=== PATIENT | female | born 1945 | race Caucasian/White ===

== ENCOUNTER → 2018-08-21 09:06 | Outpatient (CLI) | payer MEDICARE, OTHER, SELFPAY ==
[2018-08-21 12:42] LABS: Absolute Lymphocyte Count 1.45 X10^3/ul (0.83-4.51); Absolute Neutrophil Count 2.4 X10^3/uL (2.0-7.7); Basophil# 0.04 X10^3/uL; Basophil% 0.9 % (0-1); Eosinophil# 0.05 X10^3/uL; Eosinophils% 1.2 % (0-5); Hemoglobin 14.1 g/dl (12.0-15.0); Lymphocyte # 1.45 X10^3/ul (4.0); Lymphocyte % 33.4 % (19-41); Mean Corp Hgb Conc 32.8 g/gl (32-36); Mean Corpuscular Hgb 33.3 pg (27.0-32.0); Mean Corpuscular Volume 101.4 fL (81-99); Mean Platelet Vol. 12.2 fl (6.2-12.0); Monocyte% 9.2 % (0-10); Neutrophil % 55.3 % (47-70); Platelet Count 213 K/mm3 (150-450); RBC Distribution Width CV 12.3 % (11.6-14.6); RBC Distribution Width SD 45.5 fl (35.1-43.9); Red Blood Count 4.24 M/mm3 (4.2-5.4); White Blood Count 4.3 K/mm3 (4.4-11.0)
[2018-08-21 12:43] LABS: POSITIVE COUNT NO; POSITIVE DIFFERENTIAL NO; POSITIVE MORPHOLOGY NO
[2018-08-21 13:08] LABS: Vitamin B12 1126 pg/mL (211-911); Vitamin D,25 Hydroxy 55.1 ng/mL (29.95-100.01)
[2018-08-21 13:15] LABS: ALB/GLOB Ratio 1.1 RATIO (0.9-2.4); AST(SGOT) 19 U/L (15-37); Alanine Aminotransfer ALT/SGPT 21 U/L (13-56); Albumin, Serum 3.8 g/dL (3.2-5.0); Alkaline Phosphatase 81 U/L (45-117); Anion Gap 10 (5-15); BUN 27 mg/dL (7-18); BUN/Creat Ratio 31.7 RATIO (10-20); Calcium,Total 9.1 mg/dL (8.5-10.1); Chloride 107 mmol/L (98-107); Cholesterol 205 mg/dL (200); Creatinine, Serum 0.85 mg/dL (0.55-1.02); EST Glomerular Filtration Rate 69 mL/min (>60); Est Glom Filt Rate - Afr Amer 84 mL/min (>60); Free T3 3.4 pg/mL (2.18-3.98); Globulin 3.6 g/dL (2.2-4.2); Glucose 89 mg/dL (74-106); High Density Lipoprotein 61 mg/dL; Potassium 3.6 mmol/L (3.5-5.1); Protein, Total 7.4 g/dL (6.4-8.2); Sodium Level 144 mmol/L (136-145); T4 Free Direct 1.09 ng/dL (0.76-1.46); Thyroid Stim Hormone (TSH) 0.89 uIU/mL (0.358-3.74); Triglycerides 81 mg/dL; Very Low Density Lipoprotein 16 mg/dL (5-40)
== END ==
PROVIDERS: Family Provider Family Medicine; PCP Family Medicine; Visit Provider Family Medicine
DX: I10 Essential (primary) hypertension (principal); R53.83 Other fatigue; F32.9 Major depressive disorder, single episode, unspecified; E55.9 Vitamin D deficiency, unspecified; E53.8 Deficiency of other specified B group vitamins; E78.5 Hyperlipidemia, unspecified; Z51.81 Encounter for therapeutic drug level monitoring
CPT/HCPCS: 36415; 80053; 80061; 82306; 82607; 84439; 84443; 84481; 85025

== ENCOUNTER → 2019-02-20 14:00 | Outpatient (CLI) | payer MEDICARE, OTHER, SELFPAY | PROVIDERS: Family Provider Family Medicine; PCP Family Medicine; Visit Provider Family Medicine | DX: R30.0 Dysuria (principal); R82.998 Other abnormal findings in urine | CPT/HCPCS: 87086; 87088 ==

== ENCOUNTER → 2019-02-28 10:52 | Outpatient (CLI) | payer MEDICARE, OTHER, SELFPAY ==
--- NOTE | 2019-02-28 10:57 | MRI_ITS ---
STUDY: MRI RIGHT SHOULDER REASON FOR EXAM: Female, 73 years old. Pain. TECHNIQUE: Standardized fat and water weighted pulse sequences were obtained in all 3 orthogonal planes. COMPARISON: None. FINDINGS: There is a full-thickness tear of the anterior distal supraspinatus tendon, series 4 images 06/21 through . There is tendinosis of the infraspinatus with partial bursal surface distal tendon tear, series 4 images 03/14 and 04/13. Normal subscapularis tendon. Normal teres minor tendon. Normal supraspinatus muscle. Normal infraspinatus muscle. Normal subscapularis muscle. Normal teres minor muscle. There is a moderate volume joint effusion of the glenohumeral joint. There are cortical erosions at the insertion of the supraspinatus and infraspinatus tendons. Normal biceps labral complex. Normal intracapsular long biceps tendon. Normal labrum. Normal capsulo- ligamentous complex. Normal rotator interval. 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 There is a Type II morphology (curved) acromion, with a neutral orientation. There is moderate fluid distention of the subacromial bursa, consistent with moderate subacromial-subdeltoid bursitis. Normal visualized coracohumeral and coracoacromial ligaments. Normal quadrilateral space. Normal axillary space. Normal deltoid muscle. Normal trapezius muscle. MRI/Upper Ext Joint Only(Routine) IMPRESSION: Rotator cuff tear of the supraspinatus tendon. Partial tear of the infraspinatus tendon. Joint effusion. Subacromial subdeltoid bursitis. Electronically Signed: Robby Campbell MD at 11:59 EDT , Service support ,
== END ==
PROVIDERS: Family Provider Family Medicine; PCP Family Medicine; Referring Provider Family Medicine; Visit Provider Family Medicine
DX: M25.511 Pain in right shoulder (principal); M67.919 Unspecified disorder of synovium and tendon, unspecified shoulder
CPT/HCPCS: 73221

== ENCOUNTER → 2019-06-04 09:25 | Outpatient (CLI) | payer MEDICARE, OTHER, SELFPAY ==
[2019-06-04 12:22] LABS: Absolute Lymphocyte Count 1.49 X10^3/uL (0.83-4.51); Absolute Neutrophil Count 3.4 X10^3/uL (2.0-7.7); Basophil# 0.04 X10^3/uL; Basophil% 0.7 % (0-1); Eosinophil# 0.04 X10^3/uL; Eosinophils% 0.7 % (0-5); Hematocrit 41.6 % (37-47); Hemoglobin 13.4 g/dL (12.0-15.0); Lymphocyte # 1.49 X10^3/ul (4.0); Lymphocyte % 27.3 % (19-41); Mean Corp Hgb Conc 32.2 g/dL (32-36); Mean Corpuscular Hgb 32.4 pg (27.0-32.0); Mean Corpuscular Volume 100.5 fL (81-99); Mean Platelet Vol. 11.8 fl (6.2-12.0); Monocyte% 9.2 % (0-10); NRBC Flagged by Analyzer 0 % (0-5); Neutrophil # 3.36 X10^3/uL (2.7-7.7); Neutrophil % 61.7 % (47-70); Platelet Count 242 K/mm3 (150-450); RBC Distribution Width CV 12.4 % (11.6-14.6); RBC Distribution Width SD 46.1 fl (35.1-43.9); Red Blood Count 4.14 M/mm3 (4.2-5.4); White Blood Count 5.5 K/mm3 (4.4-11.0)
[2019-06-04 12:39] LABS: AST(SGOT) 13 U/L (15-37); Alanine Aminotransfer ALT/SGPT 18 U/L (13-56); Albumin, Serum 3.5 g/dL (3.2-5.0); Alkaline Phosphatase 80 U/L (45-117); Anion Gap 6 (5-15); BUN 21 mg/dL (7-18); BUN/Creat Ratio 21.7 RATIO (10-20); Chloride 110 mmol/L (98-107); Cholesterol 194 mg/dL (200); Creatinine, Serum 0.97 mg/dL (0.55-1.02); EST Glomerular Filtration Rate 60 mL/min (>60); Est Glom Filt Rate - Afr Amer 72 mL/min (>60); Globulin 3.5 g/dL (2.2-4.2); Glucose 76 mg/dL (74-106); High Density Lipoprotein 53 mg/dL; Potassium 3.4 mmol/L (3.5-5.1); Sodium Level 143 mmol/L (136-145); Thyroid Stim Hormone (TSH) 1.01 uIU/mL (0.358-3.74); Triglycerides 136 mg/dL; Very Low Density Lipoprotein 27 mg/dL (5-40)
== END ==
PROVIDERS: Family Provider Family Medicine; PCP Family Medicine; Referring Provider Family Medicine; Visit Provider Family Medicine
DX: I10 Essential (primary) hypertension (principal); R53.83 Other fatigue; E55.9 Vitamin D deficiency, unspecified; E03.9 Hypothyroidism, unspecified; E78.5 Hyperlipidemia, unspecified; Z51.81 Encounter for therapeutic drug level monitoring
CPT/HCPCS: 36415; 80053; 80061; 82306; 84443; 85025

== ENCOUNTER 2019-06-24 16:35 | Emergency (ER) | payer MEDICARE, OTHER, SELFPAY ==
[2019-06-24 16:36] VITALS: BP 143/79; PULSE 74; RESP 15; TEMP 36.6; O2SAT 95; BMI 26.2
[2019-06-24 16:42] VITALS: O2SAT 97
--- NOTE | 2019-06-24 16:59 | RAD_ITS ---
STUDY: X-RAY CHEST REASON FOR EXAM: Female, 74 years old. Cough TECHNIQUE: PA and lateral views of the chest. COMPARISON: None. FINDINGS: There is lobulation of the anterior right diaphragm. Mild central peribronchial thickening. The lungs are otherwise clear and deeply expanded. There is no demonstrated pleural abnormality. Normal size heart. Normal mediastinum and lisa. Normal visualized pulmonary arteries. Normal visualized aortic arch and descending thoracic aorta. There are mild degenerative changes of the visualized mid to lower thoracic spine. There is degenerative osteoarthritis of the bilateral acromioclavicular joints. There is no demonstrated abnormality of the visualized soft tissue structures of the upper abdomen. RAD/Chest PA and Lateral IMPRESSION: Mild central peribronchial thickening and a degree of hyperexpansion suggests bronchitis, either acute or chronic. No consolidating infiltrate or CHF. Electronically Signed: Michael Malik MD at 17:13 EST , Service support ,
--- NOTE | 2019-06-24 17:30 | ED.VIS.URI ---
History of Present Illness Chief Complaint: Cough Narrative: Patient presenting for evaluation secondary to a cough. Patient reports that over the course of about the last week she has been dealing with a cough that is minimally productive of clear sputum. Patient denies any malaise body aches or fevers. Mild rhinorrhea no sore throat. No nausea vomiting or diarrhea. Patient apparently has had some mild wheezing associated with this that has been refractory to fxza-ozh-[id number] medications. She has no underlying history of smoking COPD or asthma. No sick contacts. Review of systems otherwise negative. Past Medical History - Allergies and Home Meds Allergies/Adverse Reactions: Allergies No Known Allergies Allergy (Verified 06/24/19 16:36) Primary Care Physician: Danna Cuadra DO [Primary Care Provider] - Past Medical History: - - Depression Smoking Status: Never smoker Review of Systems All systems negative except as indicated General: Denies: Chills, Fever, Sweats Eyes: Denies: Visual changes - bilaterally, Diplopia ENT: Denies: Rhinorrhea, Sore throat Cardiovascular: Denies: Chest pain, Palpitations Respiratory: Reports: Cough Gastrointestinal: Denies: Abdominal pain, Nausea, Vomiting, Diarrhea, Melena, Hematochezia Genitourinary: Denies: Dysuria, Hematuria, Frequency Musculoskeletal: Denies: Back pain, Extremity Pain Skin: Denies: Rash, Wounds Neurological: Denies: Headache, Weakness, Numbness Physical Exam Vital Signs/Narrative: Vital Signs Temp Pulse Resp BP Pulse Ox 06/24/19 16:36 97.9 F 74 15 143/79 H 95 Inital Vital Signs reviewed: Yes General: Well nourished, Well developed Head: Normocephalic, Atraumatic Eyes: Perrl, EOMI Ears: Normal external canal, TM's clear Nose: Normal Inspection, No Rhinorrhea Mouth/Throat: Normal Inspection, No Posterior Erythema Neck: Supple, Nontender Cardiovascular: Regular rate, Regular rhythm, No murmurs Respiratory: No distress, Wheezing - Very mild scattered Abdomen: Soft, Nontender, Nondistended, Normal bowel sounds Back: Nontender, Normal Inspection Extremities: Nontender, No edema Skin: Normal color, No rash Neurological: Alert, Oriented x3, Cranial nerves II-XII grossly intact, Normal Strength, Normal Sensation Psychological: Normal affect Diagnostic/Tx/Re-eval - Medical Decision Making Patient presented secondary to a cough. She had mild wheezing. She is outside of the treatment window for influenza. PA and lateral chest x-ray by my personal review as well as radiology shows no evidence of infiltrate, but does show some evidence of possible bronchitis. Patient will be treated with an a butyryl inhaler. Patient will follow-up with primary care. Disposition: Home ED Disposition - Plan for ED Patient: Disposition: Home or Assisted Living Diagnosis: Bronchitis Instructions: BRONCHITIS with Wheezing (Adult) Prescriptions: Albuterol Inhaler [Ventolin Hfa] 1 - 2 puff INHALATION Q4H PRN PRN #1 inhaler PRN Reason: Wheezing Prescription Printed Referrals: Danna Cuadra DO [Primary Care Provider] - 1 Week
[2019-06-24 17:46] VITALS: BP 149/73; PULSE 75; RESP 18; O2SAT 95
== END 2019-06-24 17:47 | disposition home or self-care (01) ==
PROVIDERS: Emergency Provider Emergency Medicine; Family Provider Family Medicine; PCP Family Medicine
DX: J40 Bronchitis, not specified as acute or chronic (principal); F32.9 Major depressive disorder, single episode, unspecified; Z79.899 Other long term (current) drug therapy
CPT/HCPCS: 71046; 99282

== ENCOUNTER → 2019-07-21 11:44 | Outpatient (CLI) | payer MEDICARE, OTHER, SELFPAY ==
[2019-06-24 16:36] VITALS: BMI 26.2
--- NOTE | 2019-07-21 11:51 | BI_ITS ---
MAMMOGRAPHY - BILATERAL SCREENING REASON FOR EXAM: Female, 74 years old. Routine annual screening examination. PERTINENT HISTORY: Aunt with breast cancer. TECHNIQUE: Digital bilateral breast burt (3D mammographic acquisition) in the CC and MLO projections. 2-D mediolateral oblique (MLO) and craniocaudad (CC) views of both breasts were obtained. CAD: Full Field Digital Mammography with Computer Added Detection was performed. COMPARISON: Comparison is made with prior study dated September 25, 2016 and outside examination of August 29, 2012. FINDINGS: Breast Composition: The breasts are heterogeneously dense, which may obscure small masses. There are no dominant masses or suspicious calcifications. Stable benign-appearing small bilateral axillary lymph nodes. No other significant abnormalities are identified. There has been no significant change since the prior study. BI/SCREEN MAMM (CAD) W/BURT BILAT IMPRESSION: Stable bilateral screening mammogram. Yearly follow-up mammogram recommended. (A) ASSESSMENT CATEGORY: BIRADS Category 2: Benign. A letter regarding these results will be sent to the patient by the facility within 30 days. Approximately 10% of breast cancers are not detected by mammography. A normal mammogram should not delay biopsy of a clinically suspicious abnormality. [id number] Electronically Signed: Tom Napier, at 12:37 EST , Service support ,
== END ==
LOC: OPBI 11:45
PROVIDERS: PCP Family Medicine; Referring Provider Family Medicine; Visit Provider Family Medicine
DX: Z12.31 Encounter for screening mammogram for malignant neoplasm of breast (principal)
CPT/HCPCS: 77063; 77067

== ENCOUNTER → 2020-04-28 11:22 | Outpatient (CLI) | payer MEDICARE, OTHER, SELFPAY ==
[2020-04-28 15:33] LABS: Absolute Neutrophil Count 2.7 X10^3/uL (2.0-7.7); Basophil# 0.05 X10^3/uL; Basophil% 0.9 % (0-1); Eosinophil# 0.11 X10^3/uL; Hematocrit 42.8 % (37-47); Hemoglobin 13.5 g/dL (12.0-15.0); Lymphocyte % 39.4 % (19-41); Mean Corp Hgb Conc 31.5 g/dL (32-36); Mean Corpuscular Hgb 31.3 pg (27.0-32.0); Mean Corpuscular Volume 99.1 fL (81-99); Mean Platelet Vol. 11.7 fl (6.2-12.0); Monocyte# 0.48 X10^3/uL; Monocyte% 8.6 % (0-10); NRBC Flagged by Analyzer 0 % (0-5); Neutrophil # 2.74 X10^3/uL (2.7-7.7); Neutrophil % 48.9 % (47-70); Platelet Count 248 K/mm3 (150-450); RBC Distribution Width CV 12.9 % (11.6-14.6); RBC Distribution Width SD 47.2 fl (35.1-43.9); Red Blood Count 4.32 M/mm3 (4.2-5.4); White Blood Count 5.6 K/mm3 (4.4-11.0)
[2020-04-28 16:00] LABS: AST(SGOT) 21 U/L (15-37); Alanine Aminotransfer ALT/SGPT 21 U/L (13-56); Albumin, Serum 3.7 g/dL (3.2-5.0); Alkaline Phosphatase 83 U/L (45-117); Anion Gap 7 (5-15); BUN 22 mg/dL (7-18); BUN/Creat Ratio 19.3 RATIO (10-20); Chloride 105 mmol/L (98-107); Creatinine, Serum 1.14 mg/dL (0.55-1.02); EST Glomerular Filtration Rate 49 mL/min (>60); Est Glom Filt Rate - Afr Amer 59 mL/min (>60); Globulin 3.6 g/dL (2.2-4.2); Glucose 88 mg/dL (74-106); Potassium 4.1 mmol/L (3.5-5.1); Protein, Total 7.3 g/dL (6.4-8.2); Sodium Level 142 mmol/L (136-145)
[2020-04-30 07:03] LABS: SARS-COV-2 TOTAL ABS Nonreactive (Nonreactive)
== END ==
PROVIDERS: PCP Family Medicine; Visit Provider Family Medicine
DX: Z20.828 Contact with and (suspected) exposure to other viral communicable diseases (principal); I10 Essential (primary) hypertension; R53.83 Other fatigue
CPT/HCPCS: 36415; 80053; 85025; 86769

== ENCOUNTER → 2021-02-16 07:51 | Outpatient (CLI) | payer MEDICARE, OTHER, SELFPAY ==
--- NOTE | 2021-02-16 14:09 | PFT ---
INTRODUCTION: The patient is a 75-year-old female that presents for pulmonary function studies secondary to a diagnosis of shortness of breath and wheezing. Respiratory therapy reported good patient effort. Bronchodilators were used during testing. INTERPRETATION: Forced expiration spirometry demonstrates no evidence of a large airways obstructive ventilatory defect. There was no significant response to aerosolized bronchodilators. Spirograms are of good quality and plateau normally. Body plethysmography was performed and reveals lung volumes to be within normal limits. Diffusing capacity by single breath CO was also within normal limits. IMPRESSION: Grossly normal pulmonary function studies.
== END ==
PROVIDERS: PCP Family Medicine; Referring Provider Family Medicine; Visit Provider Family Medicine
DX: R06.2 Wheezing (principal)
CPT/HCPCS: 94060; 94726; 94729

== ENCOUNTER → 2021-03-17 07:32 | Outpatient (CLI) | payer MEDICARE, OTHER, SELFPAY ==
--- NOTE | 2021-03-17 07:36 | BI_ITS ---
MAMMOGRAPHY - BILATERAL SCREENING REASON FOR EXAM: Female, 75 years old. Routine annual screening examination. PERTINENT HISTORY: Aunt with breast cancer. One-month history of left palpable lump. TECHNIQUE: Digital bilateral breast burt (3D mammographic acquisition) in the CC and MLO projections. 2-D mediolateral oblique (MLO) and craniocaudad (CC) views of both breasts were obtained. CAD: Full Field Digital Mammography with Computer Added Detection was performed. COMPARISON: Comparison is made with prior study dated 01/19/2020 and 09/25/2016. FINDINGS: Breast Composition: The breasts are heterogeneously dense, which may obscure small masses. There are no dominant masses or suspicious calcifications. No other significant abnormalities are identified. There has been no significant change since the prior study. BI/SCRN MAMM (CAD)W/BURT BILAT IMPRESSION: Stable bilateral screening mammogram. With the patient''s history of a palpable lump in the left breast, correlation with ultrasound is recommended. ASSESSMENT CATEGORY: BIRADS Category 0: Incomplete. Need additional imaging evaluation. A letter regarding these results will be sent to the patient by the facility within 30 days. Approximately 10% of breast cancers are not detected by mammography. A normal mammogram should not delay biopsy of a clinically suspicious abnormality. [id number] Electronically Signed: Tom Napier MD at 8:08 EDT , Service support ,
== END ==
PROVIDERS: PCP Family Medicine; Referring Provider Family Medicine; Visit Provider Family Medicine
DX: Z12.31 Encounter for screening mammogram for malignant neoplasm of breast (principal)
CPT/HCPCS: 77063; 77067

== ENCOUNTER → 2021-03-17 08:08 | Outpatient (CLI) | payer MEDICARE, OTHER, SELFPAY ==
--- NOTE | 2021-03-17 08:25 | RAD_ITS ---
STUDY: X-RAY CHEST REASON FOR EXAM: Female, 75 years old. COUGH TECHNIQUE: PA and lateral views of the chest. COMPARISON: Comparison is made with prior study dated 06/24/2019. FINDINGS: There is hyperinflation of the lungs consistent with chronic obstructive lung disease (COPD). Stable mild increased markings at the lung bases suggestive of scarring There is no demonstrated pleural abnormality. Normal size heart. Normal mediastinum and lisa. Normal visualized pulmonary arteries. There is atherosclerotic tortuosity of the aortic arch and descending thoracic aorta. There is demineralization of the osseous structures. Increased kyphosis. Normal visualized ribs, clavicles, and shoulders. There is no demonstrated abnormality of the visualized soft tissue structures of the upper abdomen. RAD/Chest PA and Lateral IMPRESSION: Hyperinflation. Stable mild degree of linear scarring at the lung bases. Electronically Signed: Tom Napier MD at 9:19 EDT , Service support ,
== END ==
PROVIDERS: PCP Family Medicine; Referring Provider Family Medicine; Visit Provider Family Medicine
DX: R05 Cough (principal)
CPT/HCPCS: 71046

== ENCOUNTER → 2021-03-18 13:43 | Outpatient (CLI) | payer MEDICARE, OTHER, SELFPAY ==
--- NOTE | 2021-03-18 13:51 | US_ITS ---
STUDY: ULTRASOUND BREAST - LEFT REASON FOR EXAM: Female, 75 years old. Palpable lump left breast. TECHNIQUE: Axial and longitudinal images of the LEFT breast were performed with a high resolution ultrasound transducer. # OF IMAGES: 16 COMPARISON: Comparison is made with prior mammogram dated 03/17/2021. FINDINGS: LEFT Breast: There is a 5 mm x 5 mm x 3 mm mildly echogenic nodule with cystic spaces within it at the 11 o''clock position of the breast at 5 cm from the nipple. This corresponds to the palpable abnormality. A biopsy recommended. US/Breast Limited Unilateral IMPRESSION: The palpable abnormality corresponds to a 5 mm x 5 mm x 3 mm slightly echogenic nodule with cystic spaces within it. This is at the 11 o''clock position of the breast at 5 cm from nipple. A biopsy is recommended. ASSESSMENT CATEGORY: BIRADS Category 4: Suspicious - Biopsy Should Be Considered. A letter regarding these results will be sent to the patient by the facility within 30 days. Electronically Signed: Tom Napier MD at 14:37 EDT , Service support ,
== END ==
PROVIDERS: PCP Family Medicine; Referring Provider Family Medicine; Visit Provider Family Medicine
DX: N63.20 Unspecified lump in the left breast, unspecified quadrant (principal)
CPT/HCPCS: 76642

== ENCOUNTER → 2021-03-30 10:30 | Outpatient (CLI) | payer MEDICARE, OTHER, SELFPAY ==
--- NOTE | 2021-03-30 | IMM_PTH ---
PATIENT: AMINAH BOYD LOC: [facility] U#:[id number] AGE/SX: 80/F ROOM: RE03/30/[address]: Dr. Domenic Cha MD : 1945 BED: DIS: SPEC #: [id number] RECD: 03/31/21 13:14 STATUS: SYLVIE REFady #: [id number] MAEVE: 03/30/21 00:[address]: Domenic Cha DEPT: IMMUNOHISTOCHEMISTRY RECD BY: Christine Pastor ENTERED: 03/31/21 13:14 SP TYPE: IMMUNO OTHR DR: Dr. Danna Cuadra DO Tissues: Left breast, NOS Procedures: MACRO (initial) P53 (add) Vimentin (add) Pankeratin (add) PHYSICIAN & INSTITUTION [place] [id number] SPECIMEN INFORMATION: Tissue Source: Left breast, ultrasound-guided core biopsy Clinical Info: Left breast mass, 11 o?clock, 5 cm from nipple Specimen Number: [id number] CPT code: 77034, 33544 x3 METHODOLOGY: Deparaffinized sections of prefer/formalin-fixed tissue or PAP/DQ stained slides are incubated with monoclonal/polyclonal antibodies/oligonucleotide probes. Localization is made via biotin free immunoperoxidase method. Appropriate controls are performed and reacted as expected. Results on target cell population are indicated in the following table: RESULTS: ANTIBODY / CLONE RESULT Macro (HAM-56) positive Vimentin (V9) positive AE1-3 (AE1/AE3/PCK26) negative P53 (DO-7) negative These tests were developed and their performance characteristics determined by [facility]. They may not have been cleared or approved by the U.S. Food and Drug Administration. The FDA has determined that such clearance or approval is not necessary. The above immunohistochemical/dualISH markers are ordered and reviewed by the Pathologist. INTERPRETATION: Left breast, ultrasound-guided core biopsy: Benign histiocytes present. No evidence of malignancy. AM:ernesto 04/01/2021
--- NOTE | 2021-03-30 10:12 | HP.PCM_ITS ---
History and Physical Date of Admission: 03/30/21 Visit Reasons: Birads 4 left breast Chief Complaint: left breast lump Director Of Cardiology Required: No Is patient in pain?: No Allergies No Known Allergies Allergy (Verified 03/23/21 13:13) Medications albuterol sulfate 1 - 2 puff INHALATION Q4H PRN PRN #1 inhaler 06/24/19 [Rx Confirmed 03/23/21] citalopram 40 mg PO DAILY 06/24/19 [History Confirmed 03/23/21] diclofenac sodium 1 % topical gel 2 g TOPICAL BID g 03/23/21 [History Confirmed 03/23/21] ipratropium 0.5 mg-albuterol 3 mg (2.5 mg base)/3 mL nebulization soln 3 ml INHALATION Q8H PRN ml 03/23/21 [History Confirmed 03/23/21] lisinopril 10 mg-hydrochlorothiazide 12.5 mg tablet ea PO 03/23/21 [History Confirmed 03/23/21] Is last menstrual period known: No Post menopausal: Yes Patient : No PFSH Medical History (Updated 03/23/21 @ 13:12 by Marilou Jalloh) Fibrocystic breast disease HTN (hypertension) Osteoarthritis TMJ (temporomandibular joint disorder) Vitamin D deficiency Surgical History History of cataract extraction History of esophagogastroduodenoscopy (EGD) History of incisional hernia repair History of Phyllis fundoplication History of tubal ligation Family History (Updated 03/23/21 @ 13:13 by Marilou Jalloh) Father Heart disease Myocardial infarction Aunt Breast cancer Social History Smoking Status: Never smoker HPI HPI HPI: AMINAH BOYD, is a 76 F who presents to the office today for for alexia gical consultation regarding a palpable left breast mass. The patient is referred by Dr. Danna Cuadra and a written copy my surgical consult recommendations will return to her. The patient's imaging include on March 17, 2021 bilateral screening mammography. The breasts were noted to be dense. There were no suspicious findings. Because of the patient's history of a palpable left breast mass the interpretation was BI-RADS Category 0. Subsequently on March 18, 2021 left breast ultrasound was obtained. There was a 5 x 5 x 3 mm mildly echogenic nodule with cystic spaces left breast 11 o'clock position +5 cm. BI-RADS Category 4 biopsy recommended. 76-year-old female. A0. Menarche age 12. First child was born when she was 18. She did not breast-feed. She has had no previous breast biopsies. She has not been on estrogen replacement therapy. No direct family members with breast cancer. She has had no tenderness no drainage. She found this area on self-examination. She otherwise generally enjoys good health ROS General General: Yes weight change and fatigue; No appetite, colon cancer, breast cancer or weakness HEENT HEENT: No difficulty swallowing, eye injury, eye surgery, swollen glands or hoarseness Endo Endocrine: No thyroid disease, diabetes mellitus, thyroid cancer, Hair loss, heat intolerance or cold intolerance Breast Breast: Yes left breast lump; No right breast lump, nipple discharge, breast pain, abnormal mammogram, abnormal US or breast enlargement Cardio Cardiovascular: Yes atrial fibrillation; No murmur, pacemaker, heart disease, high blood pressure, heart attack, heart stent, palpitations, shortness of breat with exertion or chest pain Psych Psychiatric: No depression, anxiety or hearing voices Resp Respiratory: Yes shortness of breath, No sleep apnea, Yes cough, No COPD, No asthma, No emphysema and No wheezing Gastro Gastrointestinal: No abdominal pain, No nausea or vomiting, No diarrhea, No constipation, No blood in stool, No acid reflux, No hemorrhoids, No ulcers, No gallbladder problem and No black,tarry stools Bruno Hematologic: No blood thinners, No blood disorders, No bleeding, No anemia and No blood clots Neuro Neurologic: No weakness Exam Chest Other: Right breast: Diffusely fibrous. No focal mass. No nipple discharge. No axillary or clavicular adenopathy Left breast: Patient points to the left breast approximately 11:00 +5 cm. Today she is having difficulty in finding and palpating the area of her concern. On my clinical exam correlates with a very nondescript area of fibrous change. I do not see evidence of a skin pore. This does not feel like a classical subcutaneous lipoma. It is more of a diffuse rubbery nondescript nature. There is no nipple discharge. No axillary clavicular adenopathy Office Procedures Biopsy Provider Documentation Attempted ultrasound-guided needle core biopsy left breast 11 o'clock position +5 cm. I reviewed her preoperative mammogram imaging not demonstrating any focal finding. I reviewed her ultrasound imaging demonstrating what appears to be an extraordinarily vague subdermal lesion left breast 5 o'clock position. I then took the patient to the procedure room we prepped the area with Betadine and in the area which she we had premarked that the patient thought was the area of concern although she to had great difficulty and actually identifying the area today I performed ultrasound inspection. I could not mimic the vague findings on preoperative imaging. The procedure was concluded. Domenic Cha M.D., F.A.C.S. Assessment and Plan Assessment and Plan (1) Breast mass, left: Status: Acute Plan - Dr. Domenic Cha MD: I was hoping that on clinical exam I would be able to come to a more distinct determination. However this is rather nondescript. I therefore recommended the patient that we consider an attempt an ultrasound-guided needle core biopsy and explained technique, benefit, risk, alternatives. We will proceed as noted. We did attempt an ultrasound-guided needle core biopsy left breast 11 o'clock position +5 cm. I could not image the vague item seen on preoperative imaging. We will need to reschedule for the ultrasound suite. It is of most importance that the patient today was unable to focally locate the item herself. She was only able to localize it to a generalized area. I was only able to find an area of nondescript fibrous change. I was not able to clearly identify a focal reproducible clinical mass. We will schedule with the [facility] ultrasound suite and reattempt a biopsy if it can be visualized. I appreciate the opportunity of assisting with her surgical care Copy: Dr. Danna Cha M.D., F.A.C.S. I have re-examined the patient. There are no clinical changes since date of exam.
--- NOTE | 2021-03-30 10:33 | US_ITS ---
STUDY: ULTRASOUND BREAST - LEFT REASON FOR EXAM: Female, 76 years old. Ultrasound guided left breast biopsy. TECHNIQUE: Axial and longitudinal images of the LEFT breast were performed with a high resolution ultrasound transducer. # OF IMAGES: 28 COMPARISON: Comparison is made with prior ultrasound of the breasts dated 03/18/2021. FINDINGS: LEFT Breast: The surgeon who performed 3 core biopsies of the 7 mm x 5 mm x 3 mm hypoechoic solid and cystic nodule at the lung accomplished in the breast at 5 cm from nipple. US/US Breast Biopsy 1st Lesion IMPRESSION: Ultrasound guided breast biopsies as described. ASSESSMENT CATEGORY: BIRADS Category 4: Suspicious - Biopsy Should Be Considered. A letter regarding these results will be sent to the patient by the facility within 30 days. Electronically Signed: Tom Napier MD at 10:28 EDT , Service support ,
--- NOTE | 2021-03-30 11:00 | BRBX_PTH ---
PATIENT: AMINAH BOYD LOC: [facility] U#:[id number] AGE/SX: 80/F ROOM: RE03/30/[address]: Dr. Domenic Cha MD : 1945 BED: DIS: SPEC #: [id number] RECD: 03/30/21 11:43 STATUS: SYLVIE NARCISO #: [id number] MAEVE: 03/30/21 11:[address]: Domenic Cha DEPT: SURGICAL PATHOLOGY RECD BY: Pita Bazzi ENTERED: 03/30/21 12:53 SP TYPE: BREAST BX OTHR DR: Dr. Danna Cuadra DO Tissues: Left breast, NOS Procedures: Surgery Specimen Level IV HEADER OPERATION: Left breast biopsy, ultrasound-guided PRE-OP DIAGNOSIS: Left breast mass 11 o?clock, 5 cm from nipple TISSUE SUBMITTED: Left breast ISCHEMIC TIME: 1 minute FIXATION TIME: 8 hours MICROSCOPIC DIAGNOSIS Left breast, ultrasound-guided core biopsy: Fragments of fibrofatty tissue. Focal benign histiocytic proliferation. No evidence of malignancy. AM:ernesto 03/31/2021 COMMENT Immunohistochemistry ([id number]) supports the above diagnosis. Case has been reviewed in consultation with Dr. Cochran who concurs with the above diagnosis. IDC:PRASANNA MICROSCOPIC DESCRIPTION Slides are reviewed. GROSS DESCRIPTION Received in fixative is one container labeled with the patient's name and designated left breast. The specimen consists of multiple elongated fragments of [place]-yellow fibroadipose tissue that in aggregate measure 1 x 0.2 x 0.1 cm. The entire specimen is submitted in one cassette. / PRASANNA:ernesto 03/30/21 TC:5 [facility]: [id number]
--- NOTE | 2021-03-30 11:23 | PCM.OPRPT ---
Problems Associated Problem List Diagnoses (1) Breast mass, left: Report of Operation Date of Procedure: 03/30/21 Pre-Operative Diagnosis: Superficial left breast abnormal mammogram 11 o'clock position +5 cm Post-Operative Diagnosis: Same Surgery/Procedure Performed:: Ultrasound-guided needle core biopsy left breast 11:00 +5 cm Description of Surgical Findings:: Timeout informed consent was obtained. The patient was taken to the ultrasound suite. The very small 8 mm diameter superficial lesion left breast 11 o'clock position +5 cm was identified. This is very superficial and extraordinarily vague. Radiology felt it was BI-RADS 4 suspicious. The breast was prepped with chlorhexidine. Under ultrasound guidance 1% lidocaine was used as a local anesthetic. A small stab incision was created. 14-gauge Monopty needle was advanced to prefire depth. Pre and post fire films were obtained. 3 cores were obtained. Specimens were immediately transferred to formalin. A marking clip was placed. Pressure was held for hemostasis. Steri-Strip Telfa OpSite dressing applied. Ice pack applied. She was given activity and wound care instructions. Specimens cores. Drains none. Blood loss minimal. The patient will be provided phone contact follow-up regarding final pathology and further instructions Domenic Cha M.D., F.A.C.S. Surgeon: Domenic Cha Type of Anesthesia: Local
== END ==
PROVIDERS: PCP Family Medicine; Referring Provider Surgery; Visit Provider Surgery
DX: N63.22 Unspecified lump in the left breast, upper inner quadrant (principal)
CPT/HCPCS: 19083; 88305; 88341; 88342

== ENCOUNTER → 2021-06-15 13:49 | Outpatient (CLI) | payer MEDICARE, OTHER, SELFPAY ==
--- NOTE | 2021-06-15 13:52 | US_ITS ---
STUDY: ULTRASOUND BREAST - LEFT REASON FOR EXAM: Female, 76 years old. Status post breast biopsy. TECHNIQUE: Axial and longitudinal images of the LEFT breast were performed with a high resolution ultrasound transducer. # OF IMAGES: 14 COMPARISON: Comparison is made with prior sonogram of the left breast dated 03/30/2021. FINDINGS: LEFT Breast: The upper inner quadrant of the left breast was examined by ultrasound. A tissue clip marker is seen at the site of the biopsy. No palpable abnormality is seen at this time. US/Breast Limited Unilateral IMPRESSION: A tissue clip marker is seen in the upper inner quadrant of the left breast at the site of the prior biopsy. ASSESSMENT CATEGORY: BIRADS Category 2: Benign. A letter regarding these results will be sent to the patient by the facility within 30 days. Electronically Signed: Tom Napier MD at 15:42 EST , Service support ,
== END ==
PROVIDERS: PCP Family Medicine; Referring Provider Surgery; Visit Provider Surgery
DX: N63.20 Unspecified lump in the left breast, unspecified quadrant (principal)
CPT/HCPCS: 76642

== ENCOUNTER → 2022-05-04 | Outpatient (CLI) | payer MEDICARE, OTHER, SELFPAY ==
[2022-05-04 15:10] LABS: Absolute Lymphocyte Count 2.87 X10^3/uL (0.83-4.51); Absolute Neutrophil Count 3.8 X10^3/uL (2.0-7.7); Basophil# 0.06 X10^3/uL; Basophil% 0.8 % (0-1); Eosinophil# 0.08 X10^3/uL; Eosinophils% 1.1 % (0-5); Hematocrit 42.2 % (37-47); Hemoglobin 13.6 g/dL (12.0-15.0); Lymphocyte # 2.87 X10^3/ul (0.83-4.51); Lymphocyte % 38.9 % (19-41); Mean Corp Hgb Conc 32.2 g/dL (32-36); Mean Corpuscular Hgb 32.5 pg (27.0-32.0); Mean Corpuscular Volume 100.7 fL (81-99); Monocyte# 0.58 X10^3/uL; Monocyte% 7.9 % (0-10); NRBC Flagged by Analyzer 0 % (0-5); Neutrophil # 3.77 X10^3/uL (2.7-7.7); Neutrophil % 51.2 % (47-70); Platelet Count 232 K/mm3 (150-450); RBC Distribution Width CV 12.1 % (11.6-14.6); RBC Distribution Width SD 45.2 fl (35.1-43.9); Red Blood Count 4.19 M/mm3 (4.2-5.4); White Blood Count 7.4 K/mm3 (4.4-11.0)
[2022-05-04 15:22] LABS: AST(SGOT) 22 U/L (15-37); Alanine Aminotransfer ALT/SGPT 18 U/L (13-56); Albumin, Serum 3.5 g/dL (3.2-5.0); Alkaline Phosphatase 100 U/L (45-117); Anion Gap 7 (5-15); BUN 20 mg/dL (7-18); BUN/Creat Ratio 23.5 RATIO (10-20); Calcium,Total 8.8 mg/dL (8.5-10.1); Chloride 106 mmol/L (98-107); Cholesterol 194 mg/dL (200); Creatinine, Serum 0.85 mg/dL (0.55-1.02); EST Glomerular Filtration Rate 69 mL/min (>60); Est Glom Filt Rate - Afr Amer 83 mL/min (>60); Globulin 3.6 g/dL (2.2-4.2); Glucose 96 mg/dL (74-106); High Density Lipoprotein 52 mg/dL; Potassium 3.6 mmol/L (3.5-5.1); Protein, Total 7.1 g/dL (6.4-8.2); Sodium Level 143 mmol/L (136-145); Triglycerides 245 mg/dL; Very Low Density Lipoprotein 49 mg/dL (5-40)
== END | disposition home or self-care (01) ==
LOC: BFHLAB 13:41
PROVIDERS: PCP Family Medicine; Visit Provider Family Medicine
DX: Z51.81 Encounter for therapeutic drug level monitoring (principal); E78.5 Hyperlipidemia, unspecified
CPT/HCPCS: 36415; 80053; 80061; 85025

== ENCOUNTER → 2022-11-15 | Outpatient (CLI) | payer MEDICARE, OTHER, SELFPAY ==
[2022-11-15 11:43] LABS: Absolute Lymphocyte Count 2.58 X10^3/uL (0.83-4.51); Absolute Neutrophil Count 5.3 X10^3/uL (2.0-7.7); Basophil# 0.04 X10^3/uL; Basophil% 0.5 % (0-1); Eosinophil# 0.11 X10^3/uL; Eosinophils% 1.3 % (0-5); Hematocrit 43.7 % (37-47); Hemoglobin 14.2 g/dL (12.0-15.0); Lymphocyte # 2.58 X10^3/ul (0.83-4.51); Lymphocyte % 29.6 % (19-41); Mean Corp Hgb Conc 32.5 g/dL (32-36); Mean Corpuscular Hgb 32.8 pg (27.0-32.0); Mean Corpuscular Volume 100.9 fL (81-99); Monocyte# 0.67 X10^3/uL; Monocyte% 7.7 % (0-10); NRBC Flagged by Analyzer 0 % (0-5); Neutrophil # 5.29 X10^3/uL (2.7-7.7); Neutrophil % 60.4 % (47-70); Platelet Count 258 K/mm3 (150-450); RBC Distribution Width CV 12.4 % (11.6-14.6); RBC Distribution Width SD 46.8 fl (35.1-43.9); Red Blood Count 4.33 M/mm3 (4.2-5.4); White Blood Count 8.7 K/mm3 (4.4-11.0)
[2022-11-15 12:21] LABS: Anion Gap 5 (5-15); BUN 17 mg/dL (7-18); BUN/Creat Ratio 21.9 RATIO (10-20); Calcium,Total 9.2 mg/dL (8.5-10.1); Chloride 106 mmol/L (98-107); Creatinine, Serum 0.78 mg/dL (0.55-1.02); EST Glomerular Filtration Rate 76 mL/min (>60); Est Glom Filt Rate - Afr Amer 92 mL/min (>60); Glucose 96 mg/dL (74-106); Potassium 3.7 mmol/L (3.5-5.1); Sodium Level 139 mmol/L (136-145)
== END | disposition home or self-care (01) ==
LOC: LAB 11:22
PROVIDERS: PCP Family Medicine; Referring Provider Internal Medicine Cardiovascular Disease; Visit Provider Internal Medicine Cardiovascular Disease
DX: I51.89 Other ill-defined heart diseases (principal); I50.9 Heart failure, unspecified; I11.0 Hypertensive heart disease with heart failure
CPT/HCPCS: 36415; 80048; 85025

== ENCOUNTER 2022-11-17 10:55 | Day surgery (SDC) | payer MEDICARE, OTHER, SELFPAY ==
[2022-11-16 08:58] VITALS: BMI 27.1
--- NOTE | 2022-11-17 13:08 | CL.D_ITS ---
Patient Name: AMINAH BOYD Study Date: 11/17/2022 Performing: Yung Nix MD Ht: 58 inches 147.32 cm : 1945 Wt: 130.01 lbs 58.97 kg Age: 77 Gender: female BSA: 1.52 PROCEDURE(S) PERFORMED DC01-(10330)LHC/COR/LV CLINICAL PROFILE AND INDICATIONS Indications: Other Heart Failure: NYHA Class: 2, Newly Diagnosed: Yes, Heart Failure Type: Diastolic Stress/Imaging Stress/Image Study Performed: No CAD Presentations: Other: sob CONCLUSIONS Non obstructive coronary arteries Normal LV size, wall motion,and systolic function RECOMMENDATIONS Medical therapy DESCRIPTION OF PROCEDURE The patient arrived to the procedure lab. The risks and benefits of the procedure as well as a full description of our services here and current unavailability of surgical backup were fully explained to the patient and/or their significant other prior to the catheterization. The Timeout was completed, verifying the correct patient and procedure. The patient's procedural site was prepped and draped in the usual fashion. Local anesthetic was given subcutaneously to right radial region with Lidocaine 2%. Using a modified Seldinger technique, arterial access was obtained via the right radial artery, a 6Fr sheath was inserted. Left Coronary Artery selective angiography was performed in multiple views using a 5 Fr. 4.0 Hana catheter. Right Coronary Artery selective angiography was then performed in multiple views using a 5 Fr. 4.0 Hana catheter. Left Ventriculography was performed in BRUNNER projection using a 5 Fr. Pigtail catheter. LV to AO pullback pressures were then recorded.The arterial sheath was pulled and a TR Band was applied for hemostasis w/ 10ml air CORONARY ANGIOGRAPHY DOMINANCE: Right Dominant LEFT HEART ASSESSMENT Left Ventricular Ejection Fraction: by LV Gram 60 % Normal LV wall motion Normal Left Ventricular systolic function LEFT MAIN: Angiographically normal LEFT ANTERIOR DESCENDING ARTERY: Proximal 30% LAD and mild distal disease is present. DIAGONAL 1: Ostial - 60 % Stenosis CIRCUMFLEX ARTERY: No significant disease noted RIGHT CORONARY ARTERY: Mild luminal irregularities COMPLICATIONS No Complications PROCEDURE MEDICATIONS Versed 1 mg IV Fentanyl 50 mcg IV Oxygen: 2 L/min via nasal cannula Heparin given IA 11/17/2022 12:33:52 Verapamil 2.5mg, Ntg 100mcgs, 3000 units of Heparin given IA 11/17/2022 12:33:52 SUMMARY OF HEMODYNAMIC DATA Time AIR REST ECG 11:18:49 Art 127/51 (78) 12:26:00 AO 130/50 (86) SA 12:35:55 LV 118/5, 26 12:44:43 LV 131/6, 20 12:44:51 LV 128/2, 18 12:45:53 LV 125/5, 21 12:46:02 LVp 127/5, 22 12:46:05 AOp 133/53 (86) 12:46:12 AIR REST 12:59:06 Signed By Yung Nix MD On 11/17/2022 13:07:42 Yung Nix MD
== END 2022-11-17 14:30 | disposition home or self-care (01) ==
LOC: CLSP 10:57
PROVIDERS: PCP Family Medicine; Referring Provider Internal Medicine Cardiovascular Disease; Visit Provider Internal Medicine Cardiovascular Disease
DX: I50.30 Unspecified diastolic (congestive) heart failure (principal)
CPT/HCPCS: 93458; 99152; 99153; J7040; C1769; C1894

== ENCOUNTER → 2023-04-18 | Outpatient (CLI) | payer MEDICARE, OTHER, SELFPAY ==
[2023-04-18 13:05] LABS: Absolute Lymphocyte Count 1.86 X10^3/uL (0.83-4.51); Basophil# 0.07 X10^3/uL; Basophil% 0.7 % (0-1); Eosinophil# 0.15 X10^3/uL; Eosinophils% 1.5 % (0-5); Hematocrit 41.3 % (37-47); Hemoglobin 13.6 g/dL (12.0-15.0); Lymphocyte # 1.86 X10^3/ul (0.83-4.51); Mean Corp Hgb Conc 32.9 g/dL (32-36); Mean Corpuscular Hgb 32.8 pg (27.0-32.0); Mean Corpuscular Volume 99.5 fL (81-99); Mean Platelet Vol. 11.4 fl (6.2-12.0); Monocyte# 0.66 X10^3/uL; Monocyte% 6.7 % (0-10); NRBC Flagged by Analyzer 0 % (0-5); Neutrophil # 7.01 X10^3/uL (2.7-7.7); Neutrophil % 71.8 % (47-70); Platelet Count 249 K/mm3 (150-450); RBC Distribution Width CV 12.1 % (11.6-14.6); RBC Distribution Width SD 44.3 fl (35.1-43.9); Red Blood Count 4.15 M/mm3 (4.2-5.4); White Blood Count 9.8 K/mm3 (4.4-11.0)
[2023-04-18 13:19] LABS: Vitamin D,25 Hydroxy 51.7 ng/mL
[2023-04-18 13:39] LABS: ALB/GLOB Ratio 0.9 RATIO (0.9-2.4); AST(SGOT) 22 U/L (15-37); Alanine Aminotransfer ALT/SGPT 20 U/L (13-56); Albumin, Serum 3.5 g/dL (3.2-5.0); Alkaline Phosphatase 99 U/L (45-117); Anion Gap 5 (5-15); BUN 23 mg/dL (7-18); BUN/Creat Ratio 30.7 RATIO (10-20); Chloride 108 mmol/L (98-107); Cholesterol 197 mg/dL (200); Creatinine, Serum 0.75 mg/dL (0.55-1.02); EST Glomerular Filtration Rate 79 mL/min (>60); Est Glom Filt Rate - Afr Amer 96 mL/min (>60); Glucose 94 mg/dL (74-106); High Density Lipoprotein 63 mg/dL; Potassium 3.7 mmol/L (3.5-5.1); Protein, Total 7.5 g/dL (6.4-8.2); Sodium Level 140 mmol/L (136-145); Thyroid Stim Hormone (TSH) 0.88 uIU/mL (0.358-3.74); Triglycerides 87 mg/dL; Very Low Density Lipoprotein 17 mg/dL (5-40)
== END | disposition home or self-care (01) ==
LOC: BFHLAB 09:27
PROVIDERS: PCP Family Medicine; Referring Provider Family Medicine; Visit Provider Family Medicine
DX: Z51.81 Encounter for therapeutic drug level monitoring (principal); E55.9 Vitamin D deficiency, unspecified; E78.5 Hyperlipidemia, unspecified
CPT/HCPCS: 36415; 80053; 80061; 82306; 84443; 85025

== ENCOUNTER 2023-04-28 19:54 | Emergency (ER) | payer MEDICARE, OTHER, SELFPAY ==
[2023-04-28 19:55] VITALS: BP 193/70; PULSE 65; RESP 16; TEMP 36.6; O2SAT 98; BMI 27.1
--- NOTE | 2023-04-28 20:15 | EKG12_ITS ---
Test Reason : HTN Blood Pressure : / mmHG Vent. Rate : 063 BPM Atrial Rate : 063 BPM P-R Int : 142 ms QRS Dur : 074 ms QT Int : 414 ms P-R-T Axes : 049 009 010 degrees QTc Int : 423 ms Normal sinus rhythm Normal ECG Confirmed by BOBBY HILTON, LISS ([id number]), web editor MARY HOU ([id number]) on 05/07/2023 7:02:25 AM Referred By: CAROLEE Confirmed By:ARTURO ROSALES MD
--- NOTE | 2023-04-28 20:33 | EX.ED.DYSGE1 ---
HPI <BHAVIK Woo - Last Filed: 04/28/23 20:39> History of Present Illness Chief Complaint: Hypertension Narrative Narrative: Patient is an 78-year-old female with history of CHF, CAD, hypertension, anxiety who presents to the emergency department with elevated blood pressure. Per the daughter, the patient is on a low-sodium diet however over the last several days, she is been eating foods high in sodium. Patient denies any chest pain however states she does have history of neck pain that is going to her left shoulder. She denies any shortness of breath. Patient denies any shortness of breath on exertion, diaphoresis PFSH <BHAVIK Woo - Last Filed: 04/28/23 20:39> PFSH Medical History Anxiety and depression Atrial fibrillation Breast mass, left CHF (congestive heart failure) Diastolic dysfunction Essential hypertension Fibrocystic breast disease Osteoarthritis TMJ (temporomandibular joint disorder) Vitamin D deficiency Home Medications albuterol sulfate 90 mcg/actuation aerosol inhaler 1 - 2 puff inhalation Q4H PRN PRN Wheezing ##1 06/24/19 [Rx Last Taken Unknown] citalopram 40 mg tablet 40 mg PO DAILY 06/24/19 [History Last Taken 06/24/19] Adult BP monitor #1 ea 11/15/22 [Rx Last Taken Unknown] carvedilol 6.25 mg tablet 6.25 mg PO BID #120 tabs 11/17/22 [Rx Last Taken Unknown] diclofenac sodium 1 % topical gel 2 g topical BID PRN joint pain 12/12/22 [History Last Taken Unknown] fluticasone propionate 100 mcg/actuation blister powder for inhalation (Flovent Diskus) 1 inh inhalation Q12H 04/28/23 [History Last Taken Unknown] furosemide 40 mg tablet 40 mg PO .twice a week 04/28/23 [History Last Taken Unknown] losartan 25 mg tablet 50 mg PO DAILY 04/28/23 [History Last Taken Unknown] Allergy/AdvReac Type Severity Reaction Status Date / Time lisinopril Allergy cough Verified 04/28/23 19:54 Family History Father Heart disease Myocardial infarction Aunt Breast cancer Mother Dementia Surgical History History of cataract extraction History of colonoscopy History of esophagogastroduodenoscopy (EGD) History of incisional hernia repair History of Phyllis fundoplication History of tubal ligation Social History Smoking Status: Never smoker alcohol intake: never substance use type: does not use caffeine: Yes Type: carbonated beverages Number of servings: 1 ROS <BHAVIK Woo - Last Filed: 04/28/23 20:39> ROS ED ROS Narrative Constitutional: Negative for fever, chills, weight loss, weakness Eyes: Negative for vision loss, vision change, double vision ENT: Negative for any sore throat, ear pain, congestion Cardiovascular: Negative for any chest pain, tightness, palpitations. Positive for elevated blood pressure Respiratory: Negative for any cough, sputum production, hemoptysis, dyspnea, dyspnea on exertion, orthopnea Gastrointestinal: Negative for any abdominal pain, nausea, vomiting, diarrhea, constipation, blood in stool, blood in vomit : Negative for any urinary frequency, dysuria, retention, blood in urine Muscle skeletal: Negative for any muscle joint pain, stiffness, myalgias, arthralgias, back pain. Positive for 5 months of Neck stiffness, left shoulder pain intermittently. Neurological: Negative for any headache, syncope, numbness or tingling, dizziness Skin: Negative for any rashes, lumps, itching, abrasions, lacerations Psychiatric: Negative for any depression, anxiety, stress, suicidal ideation, homicidal ideation Hematologic: Negative for any easy bruising, excessive bruising, easy bleeding Allergies: Negative for any eczema, hives, rash EXAM <BHAVIK Woo - Last Filed: 04/28/23 20:39> Physical Exam Narrative Exam Narrative: Vital signs reviewed. HEET: Head normocephalic atraumatic, TMs clear bilaterally. Posterior pharynx is clear, moist mucous membranes. Nares clear bilaterally. Neck: Supple with no lymphadenopathy or tenderness. No signs of meningismus, negative jolt sign. Cardiac: Regular rate and rhythm no murmurs gallops or rubs, equal peripheral pulses bilaterally. Respiratory: Lung sounds are clear, patient does have diminished lung sounds to the left lower lobe no crackles noted.. No chest tenderness. Abdomen: Soft, nontender, nondistended. No abdominal bruit or pulsatile masses. No hepatosplenomegaly Extremities: No peripheral edema, no signs of gross trauma or deformity. Active full range of motion of all extremities. Neuro: Cranial nerves II through XII intact, no focal neurological deficits. Skin: Clean dry and intact with no rash, purpura, petechiae, vesicles or pustules. Backs/flank: No CVA tenderness, no midline spinal tenderness, no deformity. Psych: Normal mood and affect. No SI, HI or acute psychosis. Const Vital Signs: 04/28/23 19:55 04/28/23 20:26 04/28/23 21:42 Temperature 97.8 F Temperature Source Temporal Pulse Rate 65 Respiratory Rate 16 Respiratory Pattern Normal Blood Pressure 193/70 H Blood Pressure Mean 111 Pulse Ox 98 Oxygen Delivery Method Room Air Positive well nourished and well developed General Appearance ED: well developed <Elbert Medel MD - Last Filed: 04/28/23 22:13> Physical Exam Const Vital Signs: 04/28/23 19:55 04/28/23 20:26 04/28/23 21:42 Temperature 97.8 F Temperature Source Temporal Pulse Rate 65 Respiratory Rate 16 Respiratory Pattern Normal Blood Pressure 193/70 H Blood Pressure Mean 111 Pulse Ox 98 Oxygen Delivery Method Room Air MDM <BHAVIK Woo - Last Filed: 04/28/23 20:39> MDM Lab Data Labs: Laboratory Results - last 24 hr 04/28/23 20:40 WBC 6.6 RBC 4.09 L Hgb 13.4 Hct 40.4 MCV 98.8 MCH 32.8 H MCHC 33.2 RDW Std Deviation 45.6 H RDW Coeff of Bakari 12.6 Plt Count 199 MPV 11.1 Immature Gran % (Auto) 0.200 Neut % (Auto) 49.6 Lymph % (Auto) 38.1 [place] % (Auto) 9.5 Eos % (Auto) 1.7 Baso % (Auto) 0.9 Absolute Neuts (auto) 3.3 Absolute Lymphs (auto) 2.50 Nucleated RBC % 0 Sodium 142 Potassium 4.0 Chloride 107 Carbon Dioxide 31.0 Anion Gap 4 L BUN 19 H Creatinine 1.00 Estim Creat Clear Calc 43.21 Est GFR (MDRD) Af Amer 69 Est GFR (MDRD) Non-Af 57 L BUN/Creatinine Ratio 19.0 Glucose 100 Calcium 9.0 Troponin I High Sens 5 B-Natriuretic Peptide 39.0 Radiography Diagnostic Testing: Clinical Impression(s) from Imaging Studies Chest X-Ray 04/28/23 20:55 IMPRESSION: Normal x-ray examination of the chest. Electronically Signed: Jerry Bass MD at 21:37 EDT , EKG Normal sinus rhythm: Attestation: I personally reviewed and interpreted this EKG as follows: Comments: EKG shows a normal sinus rhythm, rate of 63 bpm SD interval 142 ms, QRS duration 74 ms, no acute ST elevation, no acute infarct noted. Treatment and Re-Evaluation :: Patient appears to be in no distress vital signs are stable. Patient presents to the emergency department complaints of elevated blood pressure. Patient will receive a full cardiac work-up. Differential diagnosis includes ACS, NE, NSTEMI, uncontrolled high blood pressure, CHF exacerbation. Patient's repeat blood pressure was 173/68. Patient will receive basic laboratory values concerning for any elevated white blood count, electrolyte imbalance, proBNP. Troponin will be completed concerning for any cardiac involvement. Patient will receive a two-view chest x-ray concern for any pulmonary pathology including pleural effusion, fluid overload. <Elbert Medel MD - Last Filed: 04/28/23 22:13> [facility] Narrative Medical decision making narrative: Dr. Medel: EKG was obtained and interpreted by myself independently as normal sinus rhythm at 63 bpm without ectopy or acute ST changes. No STEMI. I reviewed the patient's laboratory work and she has a normal white count of 6.6, hemoglobin normal 13.3, hematocrit 40.4, platelet count normal at 199. Review of her BMP shows normal sodium of 140, potassium normal at 4.0, BUN slightly elevated at 19 which I think is nonspecific, creatinine normal at 1.0. Her high-sensitivity troponin is 5. This is greater than a 6-hour troponin so I do not feel that serial enzymes are indicated. Additionally, BNP is normal at 39. Chest x-ray in 2 views and interpreted by myself independently shows no evidence of congestive heart failure, no pneumonia or pneumothorax. I reviewed the radiology report which confirms my independent interpretation. At this point in time, her blood pressure has come down to the 160s systolic. She is actually on a lower dose of losartan. Her daughter states that Dr. Nix who is in control of her blood pressure medications, actually increased her losartan from 25 mg to 50. Additionally, they reduced her Lasix to twice a week. I do feel that she should increase her losartan dose. She will be given 25 mg here in the emergency department, and she was told to keep a log of her blood pressures. Should her blood pressure be elevated, she can take an extra dose of her 50 mg, and follow-up with Dr. Nix. She is to return with chest pain, shortness of breath, headaches, new or worsening symptoms. 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 Return instructions were reviewed. Patient and her daughter are agreeable to the plan. Disposition is discharged home in stable condition. Dr. Medel: I have personally performed a face to face assessment of the patient and have reviewed the REGAN Note. I performed a substantive portion of the visit including all aspects of the following. My carbajal findings include: History is elevated blood pressure, history of CHF and hypertension Exam is afebrile. Vital signs noted. Regular rate and rhythm. Lungs clear to auscultation bilaterally. Abdomen soft and nontender. Medical Decision Making: Check labs. Check chest x-ray. Follow-up with cardiology. Discharge. Other additions or changes: [None] History & Record Review Discussion w/independent historian: Patient and Family Additional record(s) reviewed:: Prior ED visit Lab Data Attestation: I reviewed the patient's lab results. Labs: Laboratory Results - last 24 hr 04/28/23 20:40 WBC 6.6 RBC 4.09 L Hgb 13.4 Hct 40.4 MCV 98.8 MCH 32.8 H MCHC 33.2 RDW Std Deviation 45.6 H RDW Coeff of Bakari 12.6 Plt Count 199 MPV 11.1 Immature Gran % (Auto) 0.200 Neut % (Auto) 49.6 Lymph % (Auto) 38.1 [place] % (Auto) 9.5 Eos % (Auto) 1.7 Baso % (Auto) 0.9 Absolute Neuts (auto) 3.3 Absolute Lymphs (auto) 2.50 Nucleated RBC % 0 Sodium 142 Potassium 4.0 Chloride 107 Carbon Dioxide 31.0 Anion Gap 4 L BUN 19 H Creatinine 1.00 Estim Creat Clear Calc 43.21 Est GFR (MDRD) Af Amer 69 Est GFR (MDRD) Non-Af 57 L BUN/Creatinine Ratio 19.0 Glucose 100 Calcium 9.0 Troponin I High Sens 5 B-Natriuretic Peptide 39.0 Radiography Diagnostic Testing: Clinical Impression(s) from Imaging Studies Chest X-Ray 04/28/23 20:55 IMPRESSION: Normal x-ray examination of the chest. Electronically Signed: Jerry Bass MD at 21:37 EDT Reading Location ID and State: [facility] / [place] Tel , Service support , Discharge Plan Triage Chief Complaint: Hypertension ED Midlevel Provider: Khoa Green ED Provider: Elbert Medel Dx/Rx/DC Orders Clinical Impression: CHF (congestive heart failure), Essential hypertension Instructions: Blood Pressure Check Steps, ED High Blood Pressure Hypertension Prescriptions: No Action diclofenac sodium 1 % gel 2 g topical BID PRN (Reason: joint pain) Rx Instructions: apply to single elbow, wrist or hand; for hand includes palm/fingers/back of hand (DME) Adult BP monitor See Rx Instructions .Route .MEDSUPPLY Qty: 1 0RF Rx Instructions: Adult BP monitor with arm cuff. citalopram 40 MG tablet 40 mg PO DAILY Patient Comments: Take one tablet daily. albuterol sulfate 1 INHALER inhaler 1 - 2 puff inhalation Q4H PRN PRN (Reason: Wheezing) Qty: 1 0RF Hold Instructions: not taking Flovent Diskus 100 mcg/actuation blister with device 1 inh inhalation Q12H furosemide 40 mg tablet 40 mg PO .twice a week Patient Comments: , losartan 25 mg tablet 50 mg PO DAILY carvedilol 6.25 mg tablet 6.25 mg PO BID Qty: 120 3RF Rx Instructions: must administer with a meal/food Primary Care Provider: Danna Cuadra Referrals: Yung Nix MD [Med Staff - Active Staff] - 3-5 Days Danna Cuadra DO [Primary Care Provider] - 3-5 Days Activity Restrictions/Additional Instructions: Keep a log of your blood pressures, take it once in the morning and once at night. You may increase your losartan to 100 mg daily. Return with chest pain, shortness of breath, headaches, new or worsening symptoms. Disposition Disposition: Home, Self Care Discharge Date/Time: 04/28/23 21:54
--- NOTE | 2023-04-28 20:55 | RAD_ITS ---
STUDY: X-RAY CHEST REASON FOR EXAM: Female, 78 years old. chest pain TECHNIQUE: Single AP portable view of the chest. COMPARISON: 03/17/2021 FINDINGS: The lungs are clear and expanded. There is no demonstrated pleural abnormality. Normal size heart. Normal mediastinum and lisa. Normal visualized pulmonary arteries. Normal visualized aortic arch and descending thoracic aorta. Normal visualized thoracic spine. Normal visualized ribs, clavicles, and shoulders. There is no demonstrated abnormality of the visualized soft tissue structures of the upper abdomen. RAD/Chest PA and Lateral IMPRESSION: Normal x-ray examination of the chest. Electronically Signed: Jerry Bass MD at 21:37 EDT ,
[2023-04-28 20:56] LABS: Absolute Neutrophil Count 3.3 X10^3/uL (2.0-7.7); Basophil# 0.06 X10^3/uL; Basophil% 0.9 % (0-1); Eosinophil# 0.11 X10^3/uL; Eosinophils% 1.7 % (0-5); Hematocrit 40.4 % (37-47); Hemoglobin 13.4 g/dL (12.0-15.0); Lymphocyte % 38.1 % (19-41); Mean Corp Hgb Conc 33.2 g/dL (32-36); Mean Corpuscular Hgb 32.8 pg (27.0-32.0); Mean Corpuscular Volume 98.8 fL (81-99); Mean Platelet Vol. 11.1 fl (6.2-12.0); Monocyte# 0.62 X10^3/uL; Monocyte% 9.5 % (0-10); NRBC Flagged by Analyzer 0 % (0-5); Neutrophil # 3.26 X10^3/uL (2.7-7.7); Neutrophil % 49.6 % (47-70); Platelet Count 199 K/mm3 (150-450); RBC Distribution Width CV 12.6 % (11.6-14.6); RBC Distribution Width SD 45.6 fl (35.1-43.9); Red Blood Count 4.09 M/mm3 (4.2-5.4); White Blood Count 6.6 K/mm3 (4.4-11.0)
[2023-04-28 20:59] LABS: POSITIVE COUNT NO; POSITIVE DIFFERENTIAL NO; POSITIVE MORPHOLOGY NO
[2023-04-28 21:07] LABS: Anion Gap 4 (5-15); BUN 19 mg/dL (7-18); Chloride 107 mmol/L (98-107); EST Glomerular Filtration Rate 57 mL/min (>60); Est Glom Filt Rate - Afr Amer 69 mL/min (>60); Estimated Creatinine Clearance 43.21 ml/min; Glucose 100 mg/dL (74-106); Sodium Level 142 mmol/L (136-145); Troponin-I HS 5 pg/mL (3.0-54.0)
[2023-04-28] MEDS: Losartan Potassium 25 MG Tablet PO (21:52)
== END 2023-04-28 21:54 | disposition home or self-care (01) ==
PROVIDERS: Nurse Practitioner; Emergency Provider Emergency Medicine; PCP Family Medicine; Visit Provider Emergency Medicine
DX: I11.0 Hypertensive heart disease with heart failure (principal); I50.9 Heart failure, unspecified; I25.10 Atherosclerotic heart disease of native coronary artery without angina pectoris; F41.8 Other specified anxiety disorders; Z79.899 Other long term (current) drug therapy; Z98.49 Cataract extraction status, unspecified eye
CPT/HCPCS: 71046; 80048; 83880; 84484; 85025; 93005; 99283; A4216

== ENCOUNTER → 2023-07-31 | Outpatient (CLI) | payer MEDICARE, OTHER, SELFPAY ==
--- NOTE | 2023-07-31 14:31 | RAD_ITS ---
STUDY: X-RAY - CERVICAL SPINE REASON FOR EXAM: Female, 78 years old. Cervicalgia TECHNIQUE: Frontal, lateral, oblique, and odontoid view(s) of the cervical spine were obtained. COMPARISON: None FINDINGS: Normal anterior atlantoaxial articulation. Normal odontoid process. There is a grade 1 anterior listhesis at C4-5 and C5-6, and C6-7. There is diffuse demineralization of the cervical spine. There is multi-level degenerative disc disease with multilevel disc space narrowing. There is multi-level osseous foraminal stenosis. The soft tissue structures are unremarkable. There is no demonstrated fracture of the cervical spine. RAD/Cerv Spine 4 or 5 Views IMPRESSION: Degenerative change. Electronically Signed: Robby Campbell MD at 23:34 EST ,
== END | disposition home or self-care (01) ==
LOC: MTRAD 14:19
PROVIDERS: PCP Family Medicine; Referring Provider Family Medicine; Visit Provider Family Medicine
DX: M54.2 Cervicalgia (principal)
CPT/HCPCS: 72050

== ENCOUNTER → 2023-08-02 | Outpatient (CLI) | payer MEDICARE, OTHER, SELFPAY ==
--- NOTE | 2023-08-02 10:25 | BI_ITS ---
MAMMOGRAPHY - BILATERAL SCREENING REASON FOR EXAM: Female, 78 years old. Routine annual screening examination. PERTINENT HISTORY: Non-contributory. TECHNIQUE: Digital bilateral breast burt (3D mammographic acquisition) in the CC and MLO projections. 2-D mediolateral oblique (MLO) and craniocaudad (CC) views of both breasts were obtained. CAD: Full Field Digital Mammography with Computer Added Detection was performed. COMPARISON: Comparison is made with prior study dated March 17, 2021 and January 19, 2020. FINDINGS: Breast Composition: The breasts are heterogeneously dense, which may obscure small masses. There are no dominant masses or suspicious calcifications. A tissue clip marker is seen in the upper medial aspect of the left breast. Stable calcified nodule in the right breast. No other significant abnormalities are identified. There has been no significant change since the prior study. BI/SCRN MAMM (CAD)W/BURT BILAT IMPRESSION: Stable bilateral screening mammogram. Yearly follow-up mammogram recommended. (A) ASSESSMENT CATEGORY: BIRADS Category 2: Benign. A letter regarding these results will be sent to the patient by the facility within 30 days. Approximately 10% of breast cancers are not detected by mammography. A normal mammogram should not delay biopsy of a clinically suspicious abnormality. [id number] Electronically Signed: Tom Napier MD at 11:54 EST ,
--- NOTE | 2023-08-02 10:29 | BD_ITS ---
STUDY: DUAL ENERGY X-RAY ABSORPTIOMETRY / DXA REASON FOR EXAM: Female, 78 years old. M810 TECHNIQUE: Bone Mineral Density (BMD) measurements of lumbar spine and bilateral hips were obtained. COMPARISON: None. FINDINGS: Lumbar Spine (L1-L4): g/cm2 (0.958) / T-score (-1.1) / Z-score (1.7) Findings are suggestive of osteopenia with a low fracture risk. Left Femur Total: g/cm2 (0.705) / T-score (-1.9) / Z-score (0.1) Left Femoral Neck: g/cm2 (0.683) / T-score (-1.5) / Z-score (0.8) Right Femur Total: g/cm2 (0.625) / T-score (-2.6) / Z-score (-0.5) Right Femoral Neck: g/cm2 (0.562) / T-score (-2.6) / Z-score (-0.3) BD/Dexa Bone Density Study IMPRESSION: The patient is considered osteoporotic as outlined below according to World Harvey Organization (WHO) criteria with a high fracture risk. Reference Information: The T-score is the number of standard deviations above or below the standard which is normal for young adults at their peak bone mineral density. The World Health Organization (WHO) interprets the T-scores as follows: Above -1 Normal bone density Between -1 and -2.5 Osteopenia Equal to / or below -2.5 Osteoporosis As a practical clinical guideline, osteopenia may be graded as follows: Mild -1 through -1.5 Moderate -1.6 through -2.0 Severe -2.1 through -2.4 The Z-score is the number of standard deviations above or below age-matched controls. A Z-score of less than -1.5 would be considered abnormal. References: 1. NIH Osteoporosis and Related Bone Diseases www osteo.org 2. International Society for Clinical Densitometry www iscd.org 3. National Osteoporosis Foundation www nof.org Electronically Signed: Tom Napier MD at 9:45 EST ,
== END | disposition home or self-care (01) ==
LOC: OPBD 10:23
PROVIDERS: PCP Family Medicine; Referring Provider Family Medicine; Visit Provider Family Medicine
DX: Z12.31 Encounter for screening mammogram for malignant neoplasm of breast (principal); M81.0 Age-related osteoporosis without current pathological fracture
CPT/HCPCS: 77063; 77067; 77080

== ENCOUNTER 2023-09-03 10:30 | Outpatient (RCR) | payer MEDICARE, OTHER, SELFPAY ==
--- NOTE | 2023-08-08 11:31 | HP.PTEVAL_ITS ---
Patient's Visit Information Visit Information Visit Information: AMINAH BOYD is a 78 year old F referred to Physical Therapy by Dr. Honorio Paulino DO with a diagnosis of Neck pain DDD. Date of Evaluation: 08/08/23 Physical Therapist: Clinton Velazquez, PT, ATC Visit Plan Frequency: 2x /Week Duration: 4-6 Weeks Plan: Postural edu, DTR, US, cervical spine mobilizations, scap stab ex's, and HEP Subjective Subjective: Pt reports a chronic Hx of neck pain extending for several months. Pt reports she has never had tingling or numbness in her arms prior to this date, but she does today. Pt reports the radiculopathy extends from her shoulder all the way to her finger tips and is constant in nature. Pt reports she had xrays the other day which revealed DDD in cervical spine. Pt reports she is very limited in all planes of motion in her spine, which makes it very difficult for her to drive at this time. Pt reports she has no pain at rest, but notes she has pain any time she attempts to move her neck. Pt reports she has sleep difficulty at this time secondary to pain. Pt denies SOLOMON's at this time. 0-5/10 pain at this time. Pain Neck pain: Pain Intensity (Out of 10): 0 Pain Intensity Range: 5 Objective Objective: Neuro: B UE sensation is WNL to light touch. B bicipital reflex= 2/3 Palpation: Pt has severe muscle guarding throughout her spine. No obvious deformity noted at this time. ROM: Pt has a mild limitation with protraction and flexion. All other motion s are moderately to severely limited throughout cervical spine. MMT: B UE's 5/5 throughout Special testing: Pos spurlings and distraction tests Balance/Special Test Scores Oswestry Neck Score: 15 Lower Extremity Functional Score: 3 Goals Goal 1:: Decrease neck pain x 50% to aid with sleep Goal Time Frame: 4-6 Weeks Goal 2:: Increase cervical spine ROM in all planes x 1 grade to aid with IADL's Goal Time Frame: 4-6 Weeks Goal 3:: I with HEP Goal Time Frame: 4-6 Weeks Rehabilitation Potential Physical Therapy Diagnosis: Pt has neck pain, limited ROM, and difficulty with IADL's secondary to C/S DDD Rehabilitation Potential: Good Anticipated Interventions Patient/Client Instruction: Educate patient on: Condition and Plan of Care For the Purpose of:: To improve self management Therapeutic Exercise to Include: Strength training, Endurance training, Postural training, Flexibilty training and Scapular Strength/Stabilization For the Purpose of:: To decrease pain, To increase ROM and To improve muscle performance and motor function Manual Therapy Techniques to Include: Mobilization and Soft tissue mobilization For the Purpose of:: To decrease pain and To increase ROM Ultrasound (thermal/non thermal): Yes For the Purpose of:: To decrease pain and To increase ROM Text: Thank you for the opportunity to evaluate your patient. For Medicare and Medicare HMO plans, please review the plan of care and approve it. It will need to be FAXED BACK to us at [phone] for Medicare purposes. For Medicare only, by signing this I certify the plan of care. Please let me know if there are questions or concerns regarding this plan of care. Physician Signature: D ate:
== END 2023-09-03 19:00 | disposition home or self-care (01) ==
LOC: PT 10:30
PROVIDERS: PCP Family Medicine; Referring Provider Family Medicine; Visit Provider Family Medicine
DX: M50.30 Other cervical disc degeneration, unspecified cervical region (principal)
CPT/HCPCS: 97035; 97110; 97140; 97161

== ENCOUNTER → 2023-09-27 | Outpatient (CLI) | payer MEDICARE, OTHER, SELFPAY ==
[2023-09-27 12:06] LABS: Absolute Lymphocyte Count 1.72 X10^3/uL (0.83-4.51); Absolute Neutrophil Count 3.1 X10^3/uL (2.0-7.7); Basophil# 0.05 X10^3/uL; Basophil% 0.9 % (0-1); Eosinophils% 1.8 % (0-5); Hematocrit 39.8 % (37-47); Hemoglobin 12.9 g/dL (12.0-15.0); Lymphocyte # 1.72 X10^3/ul (0.83-4.51); Lymphocyte % 31.7 % (19-41); Mean Corp Hgb Conc 32.4 g/dL (32-36); Mean Corpuscular Hgb 32.1 pg (27.0-32.0); Mean Platelet Vol. 11.4 fl (6.2-12.0); Monocyte# 0.48 X10^3/uL; Monocyte% 8.8 % (0-10); NRBC Flagged by Analyzer 0 % (0-5); Neutrophil # 3.07 X10^3/uL (2.7-7.7); Neutrophil % 56.6 % (47-70); Platelet Count 212 K/mm3 (150-450); RBC Distribution Width CV 12.5 % (11.6-14.6); RBC Distribution Width SD 45.2 fl (35.1-43.9); Red Blood Count 4.02 M/mm3 (4.2-5.4); White Blood Count 5.4 K/mm3 (4.4-11.0)
[2023-09-27 12:36] LABS: Vitamin B12 237 pg/mL (211-911)
[2023-09-27 13:08] LABS: ALB/GLOB Ratio 0.9 RATIO (0.9-2.4); AST(SGOT) 20 U/L (15-37); Alanine Aminotransfer ALT/SGPT 15 U/L (13-56); Albumin, Serum 3.3 g/dL (3.2-5.0); Alkaline Phosphatase 85 U/L (45-117); Anion Gap 3 (5-15); BUN 21 mg/dL (7-18); BUN/Creat Ratio 29.1 RATIO (10-20); Calcium,Total 8.5 mg/dL (8.5-10.1); Chloride 109 mmol/L (98-107); Creatinine, Serum 0.72 mg/dL (0.55-1.02); EST Glomerular Filtration Rate 83 mL/min (>60); Est Glom Filt Rate - Afr Amer 100 mL/min (>60); Free T3 2.7 pg/mL (2.18-3.98); Globulin 3.7 g/dL (2.2-4.2); Glucose 84 mg/dL (74-106); Potassium 3.7 mmol/L (3.5-5.1); Sodium Level 138 mmol/L (136-145); T4 Free Direct 1.02 ng/dL (0.76-1.46); Thyroid Stim Hormone (TSH) 1.53 uIU/mL (0.358-3.74)
== END | disposition home or self-care (01) ==
LOC: BFHLAB 09:23
PROVIDERS: PCP Family Medicine; Visit Provider Family Medicine
DX: I10 Essential (primary) hypertension (principal); R53.83 Other fatigue; E53.8 Deficiency of other specified B group vitamins
CPT/HCPCS: 36415; 80053; 82607; 84439; 84443; 84481; 85025

== ENCOUNTER → 2024-06-13 | Outpatient (CLI) | payer MEDICARE, OTHER, SELFPAY ==
[2024-06-13 09:35] LABS: Absolute Lymphocyte Count 2.69 X10^3/uL (0.83-4.51); Absolute Neutrophil Count 7.2 X10^3/uL (2.0-7.7); Basophil# 0.02 X10^3/uL; Basophil% 0.2 % (0-1); Eosinophil# 0.01 X10^3/uL; Eosinophils% 0.1 % (0-5); Hematocrit 43.5 % (37-47); Hemoglobin 13.8 g/dL (12.0-15.0); Lymphocyte # 2.69 X10^3/ul (0.83-4.51); Lymphocyte % 24.7 % (19-41); Mean Corp Hgb Conc 31.7 g/dL (32-36); Mean Corpuscular Volume 100.9 fL (81-99); Mean Platelet Vol. 10.9 fl (6.2-12.0); Monocyte# 0.95 X10^3/uL; Monocyte% 8.7 % (0-10); NRBC Flagged by Analyzer 0 % (0-5); Neutrophil # 7.19 X10^3/uL (2.7-7.7); Neutrophil % 65.9 % (47-70); Platelet Count 283 K/mm3 (150-450); RBC Distribution Width CV 12.5 % (11.6-14.6); RBC Distribution Width SD 47.2 fl (35.1-43.9); Red Blood Count 4.31 M/mm3 (4.2-5.4); White Blood Count 10.9 K/mm3 (4.4-11.0)
[2024-06-13 10:15] LABS: Anion Gap 5 (5-15); BUN 28 mg/dL (7-18); BUN/Creat Ratio 31.3 RATIO (10-20); Calcium,Total 9.3 mg/dL (8.5-10.1); Chloride 109 mmol/L (98-107); EST Glomerular Filtration Rate 64 mL/min (>60); Est Glom Filt Rate - Afr Amer 78 mL/min (>60); Glucose 91 mg/dL (74-106); Magnesium 2.3 mg/dL (1.6-2.6); Potassium 3.5 mmol/L (3.5-5.1); Sodium Level 142 mmol/L (136-145)
== END | disposition home or self-care (01) ==
LOC: LAB 09:12
PROVIDERS: PCP Family Medicine; Referring Provider Physician Assistant Medical; Visit Provider Physician Assistant Medical
DX: I10 Essential (primary) hypertension (principal); Z51.81 Encounter for therapeutic drug level monitoring; Z79.899 Other long term (current) drug therapy; R00.2 Palpitations
CPT/HCPCS: 36415; 80048; 83735; 84443; 85025

== ENCOUNTER → 2024-09-19 | Outpatient (CLI) | payer MEDICARE, OTHER, SELFPAY ==
--- NOTE | 2024-09-19 14:41 | VDLE_ITS ---
Reason For Study Reason For Study: Left leg pain RIGHT LEFT CFV is compressible, spontaneous, phasic, competent GSV is normal. and demonstrates normal augmentation. CFV is compressible, spontaneous, phasic, competent, Procedure and demonstrates normal augmentation. This is a venous duplex using B-mode, color flow and FV is compressible, spontaneous, phasic, competent spectral Doppler. and demonstrates normal augmentation. Exam performed in department. POP V is compressible, spontaneous, phasic, competent A preliminary report was called and/or faxed to and demonstrates normal augmentation. Ethan. T/P Trunk is compressible. PTV is compressible. LT PerV is compressible. VL/Venous Duplex US, Unilateral Interpretation Summary Deep veins of the left lower extremity are patent and compressible segmentally. There is no evidence of left lower extremity deep vein thrombosis. The left great saphenous vein appears patent an d compressible segmentally. Ordering Physician: Timothy Long Referring Physician: Danna Cuadra Performed By: Gillian Lantigua RVT
== END | disposition home or self-care (01) ==
PROVIDERS: PCP Family Medicine; Referring Provider Specialist; Visit Provider Specialist
DX: M79.662 Pain in left lower leg (principal)
CPT/HCPCS: 93971

== ENCOUNTER → 2024-11-24 | Outpatient (CLI) | payer MEDICARE, OTHER, SELFPAY ==
[2024-11-24 18:53] LABS: Anion Gap 12 (5-15); BUN 19 mg/dL (4-19); BUN/Creat Ratio 27.4 RATIO (10-20); Calcium,Total 9.2 mg/dL (7.6-11.0); Chloride 106 mmol/L (98-108); EST Glomerular Filtration Rate 87 (>60); Glucose 104 mg/dL (70-99); Potassium 3.5 mmol/L (3.3-5.1); Sodium Level 140 mmol/L (133-145)
== END | disposition home or self-care (01) ==
LOC: MTLAB 14:38
PROVIDERS: PCP Family Medicine; Referring Provider Nurse Practitioner Family; Visit Provider Nurse Practitioner Family
DX: I51.89 Other ill-defined heart diseases (principal); I10 Essential (primary) hypertension; Z79.899 Other long term (current) drug therapy; Z51.81 Encounter for therapeutic drug level monitoring
CPT/HCPCS: 36415; 80048

== ENCOUNTER → 2025-05-04 | Outpatient (CLI) | payer MEDICARE, OTHER, SELFPAY ==
[2025-05-04 12:12] LABS: Hematocrit 38.9 % (37-47); Hemoglobin 13.0 g/dL (12.0-15.0); Immature Granulocytes Count 0.070 X10^3/uL (0.0-0.0); Mean Corp Hgb Conc 33.4 g/dL (32-36); Mean Corpuscular Volume 97.0 fL (81-99); Mean Platelet Vol. 11.5 fl (6.2-12.0); NRBC Flagged by Analyzer 0 % (0-5); Platelet Count 224 K/mm3 (150-450); RBC Distribution Width CV 12.4 % (11.6-14.6); RBC Distribution Width SD 45.0 fl (35.1-43.9); Red Blood Count 4.01 M/mm3 (4.2-5.4); White Blood Count 6.1 K/mm3 (4.4-11.0)
[2025-05-04 13:11] LABS: AST(SGOT) 26 U/L (<=31); Alanine Aminotransfer ALT/SGPT 12 U/L (<=34); Albumin, Serum 4.2 g/dL (3.4-4.8); Alkaline Phosphatase 74 U/L (35-104); Anion Gap 11 (5-15); BUN 20 mg/dL (4-19); BUN/Creat Ratio 28.8 RATIO (10-20); Calcium,Total 9.5 mg/dL (7.6-11.0); Carbon Dioxide 23.9 mmol/L (21.0-32.0); Chloride 105 mmol/L (98-108); Cholesterol 204 mg/dL (<=200); Globulin 2.9 g/dL (2.2-4.2); Glucose 88 mg/dL (70-99); Low Density Lipoprotein Calc. 123 mg/dL; Potassium 4.0 mmol/L (3.3-5.1); Triglycerides 79 mg/dL; Very Low Density Lipoprotein 16 mg/dL (5-40); Vitamin B12 386 pg/mL (180-914); Vitamin D,25 Hydroxy 57.6 ng/mL (30-100); cholesterol:hdl ratio screen 3.07
== END | disposition home or self-care (01) ==
LOC: BFHLAB 10:57
PROVIDERS: PCP Family Medicine; Visit Provider Family Medicine
DX: Z51.81 Encounter for therapeutic drug level monitoring (principal); E55.9 Vitamin D deficiency, unspecified; E78.5 Hyperlipidemia, unspecified; E53.8 Deficiency of other specified B group vitamins
CPT/HCPCS: 36415; 80053; 80061; 82306; 82607; 84443; 85025

== ENCOUNTER → 2025-06-05 | Outpatient (CLI) | payer MEDICARE, OTHER, SELFPAY ==
--- NOTE | 2025-06-05 10:01 | BI_ITS ---
EXAM: SCRN MAMM (CAD)W/BURT BILAT DATE: 06/05/2025 CLINICAL HISTORY: F, Age 80 y/o , SCREEN TECHNIQUE: Procedure Code: [id number] Modality: MG Procedure: SCRN MAMM (CAD)W/BURT BILAT COMPARISON: Prior exam(s) were compared FINDINGS: TISSUE DENSITY: The breasts are heterogeneously dense, which may obscure small masses. Bilateral Breast Mammographic Findings: No significant masses, calcifications or other abnormalities are identified. BI/SCRN MAMM (CAD)W/BURT BILAT IMPRESSION: No mammographic evidence of malignancy. OVERALL FINAL ASSESSMENT BI-RADS 1: NEGATIVE. RECOMMENDATION: Routine annual follow-up in 1 Year Additional Recommendation none A letter with findings and recommendations will be mailed to the patient. Reading Location: [id number]
== END | disposition home or self-care (01) ==
LOC: OPBI 09:59
PROVIDERS: PCP Family Medicine; Referring Provider Family Medicine; Visit Provider Family Medicine
DX: Z12.31 Encounter for screening mammogram for malignant neoplasm of breast (principal)
CPT/HCPCS: 77063; 77067